=== PATIENT | female | born 1960 | race African-American/Black ===

== ENCOUNTER 2020-11-29 22:39 | Emergency (ER) | payer OTHER ==
[~2020-11-29] VITALS: Ht 162.6 cm; Wt 106.6 kg
[2020-11-29 23:40] LABS: Basophils # (auto) 0 10 ^3/uL (0-0.2); Basophils % (auto) 0.4 % (0.0-2.0); Eosinophils # (auto) 0.1 10 ^3/uL (0-0.8); Eosinophils % (auto) 2.4 % (0.0-7.0); Hematocrit 38.5 % (36.0-46.0); Hemoglobin 12.7 g/dL (12.2-16.2); Lymphocytes # (auto) 1.8 10 ^3/uL (0.4-5.4); Lymphocytes % (auto) 45.9 % (10.0-50.0); Mean Corpuscular Hemoglobin 27.1 pg (28.0-32.0); Mean Corpuscular Volume 82.3 fL (80.0-100.0); Monocytes # (auto) 0.4 10 ^3/uL (0-1.3); Monocytes % (auto) 10.4 % (0.0-12.0); Neutrophils # (auto) 1.6 10 ^3/uL (1.6-8.6); Neutrophils % (auto) 40.9 % (37.0-80.0); Nucleated Red Blood Cells % 0.4 %; Platelet Count (auto) 214 10^3/uL (140-450); Red Blood Cells 4.68 10^6/uL (4.0-5.20); Red Cell Distribution Width 14.8 % (11.8-14.3)
[2020-11-29 23:53] LABS: INR 1.04 (0.9-1.15); Partial Thromboplastin Time 27.5 sec (23.0-31.2)
[2020-11-29 23:57] LABS: Albumin 3.6 g/dL (3.4-5.0); Anion Gap 8 (5-15); Blood Urea Nitrogen 9 mg/dL (7-18); Calcium 8.4 mg/dL (8.5-10.1); Carbon Dioxide 28 mmol/L (21-32); Chloride 105 mmol/L (98-107); GFR African American 92 mL/min; GFR Non-African American 76 mL/min; Glucose 98 mg/dL (74-106); Potassium 3.1 mmol/L (3.5-5.1); Sodium 141 mmol/L (136-145)
[2020-11-30 00:02] LABS: Alanine Aminotransferase 19 U/L (13-56); Alkaline Phosphatase 80 U/L (45-117); Aspartate Aminotransferase 16 U/L (15-37); Bilirubin, Total 0.2 mg/dL (0.2-1.0)
[2020-11-30] MEDS ORDERED: POTASSIUM EFFERVESENT TAB 25 MEQ PO ONE (00:30)
[2020-11-30] MEDS ORDERED: POTASSIUM CHL 20MEQ/100ML 100 ML IV ONE (00:30)
[2020-11-30] MEDS ORDERED: IOHEXOL 350 MG/ML 100ML IJ ONE (00:35)
[2020-11-30 03:21] VITALS: BP 123/67
== END 2020-11-30 05:06 | disposition home or self-care (01) ==
LOC: ER 22:41
DX: R07.89 Other chest pain (principal); E87.6 Hypokalemia; K21.9 Gastro-esophageal reflux disease without esophagitis; I10 Essential (primary) hypertension; E11.9 Type 2 diabetes mellitus without complications
CPT/HCPCS: 36415; 71045; 71275; 80053; 83880; 84484; 85025; 85379; 85610; 85730; 93005; 93970; 96365; 96366; 99285; J3480; Q9967

== ENCOUNTER 2021-05-25 17:27 | Emergency (ER) | payer OTHER ==
[~2021-05-25] VITALS: Ht 157.5 cm; Wt 99.8 kg
[2021-05-25 18:22] LABS: Basophils # (auto) 0 10 ^3/uL (0-0.2); Basophils % (auto) 0.8 % (0.0-2.0); Eosinophils # (auto) 0 10 ^3/uL (0-0.8); Eosinophils % (auto) 0.9 % (0.0-7.0); Hematocrit 38.3 % (36.0-46.0); Hemoglobin 12.4 g/dL (12.2-16.2); Lymphocytes # (auto) 1.2 10 ^3/uL (0.4-5.4); Lymphocytes % (auto) 26.2 % (10.0-50.0); Mean Corpuscular Hemoglobin 26.9 pg (28.0-32.0); Mean Corpuscular Hgb Conc. 32.4 g/dL (32.0-36.0); Mean Corpuscular Volume 83.2 fL (80.0-100.0); Monocytes # (auto) 0.3 10 ^3/uL (0-1.3); Monocytes % (auto) 7.1 % (0.0-12.0); Red Blood Cells 4.61 10^6/uL (4.0-5.20); Red Cell Distribution Width 15.2 % (11.8-14.3); White Blood Cell 4.6 10^3/uL (4.4-10.8)
[2021-05-25 18:47] LABS: Alanine Aminotransferase 25 U/L (13-56); Albumin 3.5 g/dL (3.4-5.0); Anion Gap 7 (5-15); Aspartate Aminotransferase 21 U/L (15-37); BUN/Creatinine Ratio 10.5; Blood Urea Nitrogen 8 mg/dL (7-18); Calcium 8.4 mg/dL (8.5-10.1); Carbon Dioxide 27 mmol/L (21-32); Chloride 109 mmol/L (98-107); GFR African American 100 mL/min; GFR Non-African American 83 mL/min; Glucose 96 mg/dL (74-106); Potassium 3.4 mmol/L (3.5-5.1); Sodium 143 mmol/L (136-145)
[2021-05-25 18:52] LABS: Alkaline Phosphatase 81 U/L (45-117); Bilirubin, Total 0.3 mg/dL (0.2-1.0); Total Protein 7.9 g/dL (6.4-8.2)
[2021-05-25 21:50] VITALS: BP 145/86
== END 2021-05-25 21:55 | disposition home or self-care (01) ==
LOC: ER 17:27
DX: R07.89 Other chest pain (principal); I10 Essential (primary) hypertension; Z90.89 Acquired absence of other organs; Z88.2 Allergy status to sulfonamides
CPT/HCPCS: 36415; 71045; 80053; 83880; 84484; 85025; 93005

== ENCOUNTER 2021-06-11 17:50 | Emergency (ER) | payer OTHER ==
[~2021-06-11] VITALS: Ht 162.6 cm; Wt 108.9 kg
[2021-06-11 23:37] LABS: Mean Corpuscular Volume 83.3 fL (80.0-100.0); White Blood Cell 4.5 10^3/uL (4.4-10.8)
[2021-06-11 23:50] LABS: Basophils # (auto) 0 10 ^3/uL (0-0.2); Basophils % (auto) 0.8 % (0.0-2.0); Eosinophils # (auto) 0 10 ^3/uL (0-0.8); Hematocrit 39.6 % (36.0-46.0); Lymphocytes # (auto) 1.7 10 ^3/uL (0.4-5.4); Lymphocytes % (auto) 37.4 % (10.0-50.0); Mean Corpuscular Hemoglobin 27.3 pg (28.0-32.0); Mean Corpuscular Hgb Conc. 32.8 g/dL (32.0-36.0); Monocytes # (auto) 0.4 10 ^3/uL (0-1.3); Monocytes % (auto) 8.5 % (0.0-12.0); Neutrophils # (auto) 2.4 10 ^3/uL (1.6-8.6); Neutrophils % (auto) 52.3 % (37.0-80.0); Nucleated Red Blood Cells % 0.2 %; Red Blood Cells 4.75 10^6/uL (4.0-5.20)
[2021-06-11 23:53] LABS: Albumin 3.7 g/dL (3.4-5.0); Calcium 8.7 mg/dL (8.5-10.1); Potassium 3.5 mmol/L (3.5-5.1)
[2021-06-12 00:12] LABS: BUN/Creatinine Ratio 8.5; Bilirubin, Total 0.5 mg/dL (0.2-1.0); Total Protein 8.5 g/dL (6.4-8.2)
[2021-06-12] MEDS ORDERED: SODIUM CHLORIDE 0.9% 1,000 ML IV ONE (04:45)
[2021-06-12 04:53] LABS: Urine Bacteria FEW /hpf (None Seen); Urine Blood Negative /uL (Negative); Urine Hyaline Cast FEW /lpf (0 - 2); Urine Mucus FEW (None Seen); Urine Specific Gravity 1.013 (1.001-1.035); Urine WBC 1 /hpf (0 - 5)
[2021-06-12] MEDS ORDERED: IOHEXOL 350 MG/ML 100ML IJ ONE (08:00)
[2021-06-12] MEDS ORDERED: ONDANSETRON HCL 4 MG/2 ML VIAL IV ONE (08:45)
[2021-06-12] MEDS ORDERED: MORPHINE SULFATE INJECTION 2 MG/ML SYRG IV ONE (08:45)
[2021-06-12] MEDS ORDERED: LEVOTHYROXINE SODIUM 50 MCG TAB PO ONE (08:45)
[2021-06-12 11:50] VITALS: BP 117/62
== END 2021-06-12 12:21 | disposition home or self-care (01) ==
LOC: ER 17:52
DX: R06.02 Shortness of breath (principal); R07.89 Other chest pain; I10 Essential (primary) hypertension; F17.210 Nicotine dependence, cigarettes, uncomplicated; Z90.89 Acquired absence of other organs; Z20.822 Contact with and (suspected) exposure to COVID-19
CPT/HCPCS: 36415; 71275; 80053; 81001; 83880; 84443; 84484; 85025; 85379; 87426; 96361; 96374; 96375; 99285; J2270; J2405; J7030; Q9967; 71045

== ENCOUNTER 2022-10-25 16:40 | Emergency (ER) | payer OTHER ==
[~2022-10-25] VITALS: Ht 162.6 cm; Wt 107.6 kg
[2022-10-25] MEDS ORDERED: ASPirin 81 mg TAB PO ONE (18:30)
[2022-10-25 19:00] LABS: Basophils # (auto) 0 10 ^3/uL (0-0.2); Basophils % (auto) 0.8 % (0.0-2.0); Eosinophils # (auto) 0 10 ^3/uL (0-0.8); Eosinophils % (auto) 0.8 % (0.0-7.0); Hematocrit 38.4 % (36.0-46.0); Hemoglobin 12.4 g/dL (12.2-16.2); Lymphocytes # (auto) 1.3 10 ^3/uL (0.4-5.4); Lymphocytes % (auto) 22.7 % (10.0-50.0); Mean Corpuscular Hemoglobin 26.8 pg (28.0-32.0); Mean Corpuscular Hgb Conc. 32.3 g/dL (32.0-36.0); Mean Corpuscular Volume 82.9 fL (80.0-100.0); Monocytes # (auto) 0.3 10 ^3/uL (0-1.3); Monocytes % (auto) 5.6 % (0.0-12.0); Neutrophils # (auto) 3.9 10 ^3/uL (1.6-8.6); Neutrophils % (auto) 70.1 % (37.0-80.0); Nucleated Red Blood Cells % 0.2 %; Red Blood Cells 4.63 10^6/uL (4.0-5.20); Red Cell Distribution Width 14.8 % (11.8-14.3); White Blood Cell 5.6 10^3/uL (4.4-10.8)
[2022-10-25 19:21] LABS: Albumin 3.6 g/dL (3.4-5.0); Calcium 8.9 mg/dL (8.5-10.1); Potassium 4.3 mmol/L (3.5-5.1)
[2022-10-25 19:26] LABS: BUN/Creatinine Ratio 10.4 (10.0-20.0); Bilirubin, Total 0.3 mg/dL (0.2-1.0); Total Protein 7.8 g/dL (6.4-8.2)
[2022-10-25 19:29] LABS: Partial Thromboplastin Time 28.3 sec (24.6-33.4)
[2022-10-25] MEDS ORDERED: METOCLOPRAMIDE HCL 10 MG TAB PO ONE (20:30)
[2022-10-25 21:33] VITALS: BP 157/85
== END 2022-10-25 21:37 | disposition home or self-care (01) ==
LOC: ER 16:40
DX: R07.89 Other chest pain (principal); I10 Essential (primary) hypertension; F17.210 Nicotine dependence, cigarettes, uncomplicated; Z90.89 Acquired absence of other organs; Z88.2 Allergy status to sulfonamides
CPT/HCPCS: 36415; 71045; 80053; 84484; 85025; 85610; 85730; 93005; 99285; J8597

== ENCOUNTER 2024-12-08 18:53 | Emergency (ER) | payer OTHER ==
[~2024-12-08] VITALS: Ht 175.3 cm; Wt 136.0 kg
--- NOTE | 2024-12-08 19:04 | ECG ---
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
[2024-12-08 19:31] LABS: Basophils # (auto) 0 10 ^3/uL (0-0.2); Eosinophils # (auto) 0.1 10 ^3/uL (0-0.8); Lymphocytes # (auto) 1.2 10 ^3/uL (0.4-5.4); Mean Corpuscular Hgb Conc. 32.6 g/dL (32.0-36.0); Monocytes # (auto) 0.4 10 ^3/uL (0-1.3); White Blood Cell 3.7 10^3/uL (4.4-10.8)
[2024-12-08 19:33] LABS: Basophils % (auto) 0.9 % (0.0-2.0); Eosinophils % (auto) 2.1 % (0.0-7.0); Hematocrit 39.2 % (36.0-46.0); Hemoglobin 12.8 g/dL (12.2-16.2); Lymphocytes % (auto) 32.6 % (10.0-50.0); Mean Corpuscular Hemoglobin 26.6 pg (28.0-32.0); Mean Corpuscular Volume 81.7 fL (80.0-100.0); Neutrophils % (auto) 54.4 % (37.0-80.0); Nucleated Red Blood Cells % 0.2 %; Platelet Count (auto) 223 10^3/uL (140-450); Red Cell Distribution Width 14.6 % (11.8-14.3)
[2024-12-08 19:48] LABS: Alanine Aminotransferase 21 U/L (7-40); Albumin 4.5 g/dL (3.2-4.8); Alkaline Phosphatase 101 U/L (46-116); Anion Gap 8 (5-15); Aspartate Aminotransferase 20 U/L (13-40); BUN/Creatinine Ratio 9.9 (10.0-20.0); Blood Urea Nitrogen 10 mg/dL (9-23); Calcium 9.6 mg/dL (8.7-10.4); Carbon Dioxide 28 mmol/L (20-31); Glucose 104 mg/dL (74-106); Sodium 143 mmol/L (136-145); Total Protein 7.7 g/dL (5.7-8.2)
[2024-12-08 19:49] LABS: Bilirubin, Total 0.4 mg/dL (0.2-1.0)
[2024-12-08 19:53] LABS: Chloride 107 mmol/L (98-107); Potassium 3.2 mmol/L (3.5-5.1)
--- NOTE | 2024-12-08 20:07 | ED.PDOC ---
History of Present Illness HPI Comments 64 y/o morbidly obese F, with a history of thyroid cancer s/p thyroidectomy, HTN, PE, and tobacco use, is BIBA for c/o shortness of breath, nonproductive cough, left-sided chest pain, that radiates to left-flank area, irregular heart beat, nausea, increase urine frequency, and headache, today. Patient reports on unprovoked onset of symptoms, while resting in bed, at around 0800, this morning, that has been progressively worsening since. She describes her irregular heart beat as her heart "skipping a beat" sensation. States on needing urinate "every 30 minutes." Patient endorses on having history of similar symptoms multiple times in the past, with accompanying hospital visits. She den ies any vomiting, dysuria, congestion, fever, chills, or further associated symptoms or modifiers at this time. Denies any blood thinner medications use, currently. Reports being noncompliant with prescription Lasix for idiopathic, chronic and intermittent leg edema. Per EMS report, patient was found on scene breathing fast, with a systolic blood pressure in the 170's range. SpO2 of 100%RA. En route, patient's blood pressure improved to a systolic blood pressure in the 140's range after calming down. Nausea symptoms resolved after being given 4mg Zofran ODT by EMS. Chief Complaint: Shortness of Breath Time Seen by MD: 19:00 Primary Care Provider: KISHORE Reviewed Notes: Nurses Notes, Fisherman Helper Notes, Medications, Allergies Allergies: Coded Allergies: Elemental Sulfur (Verified Allergy, Unknown, 11/29/20) Information Source: Patient, Emergency Med Personnel Mode of Arrival: EMS Severity: Moderate Timing: Hours Duration: Since onset Prehospital treatment: 12 Lead EKG, Accucheck, Commercial Lines Insurance Agent, Treatment (4mg Zofran ODT) Review of Systems: REVIEW OF SYSTEMS: No fever, no chills, or fatigue HEENT: No sore throat, no earache, no congestion, no neck pain. Cardiac: Left-chest pain. Irregular heart beat. No palpitations. Lungs: Shortness of breath, Nonproductive cough. GI: Nausea, no vomiting, no diarrhea, no constipation, no abdominal pain : Increase urine frequency. No dysuria, or urgency. No hematuria. Musculoskeletal: No joint pain , no joint swelling, no extremity edema. Skin: No rash, no itching. Neuro: Headache, no dizziness, no weakness Vital Signs Vital Signs Date Time Temp Pulse Resp B/P (MAP) Pulse Ox O2 Delivery O2 Flow Rate FiO2 12/08/24 20:07 73 12/08/24 19:00 97.6 20 143/88 (106) 100 97.6 Physical Exam General: Awake, alert and oriented. No acute distress. Skin: Skin in warm, dry and intact. Appropriate color for ethnicity. HEENT: The head is normocephalic and atraumatic. Conjunctivae are clear without exudates or hemorrhage. Sclera is non-icteric. EOM are intact. No signs of nystagmus. Eyelids are normal in appearance without swelling or lesions. Oral mucosa is pink and moist Neck: The neck is supple with normal range of motion. No JVD. Cardiac: Rapid heart rate, regular rhythm. No murmurs, gallops, or rubs are auscultated. Respiratory: Intermittent wheezing left-lung. No signs of respiratory distress. Otherwise, lung sounds are clear in all lobes bilaterally. No rales or rhonchi. Abdominal: Abdomen is soft, non-tender without distention. Bowel sounds are present and normoactive in all four quadrants. Extremities: Upper and lower extremities are atraumatic in appearance without deformity or edema. Neurological: The patient is awake, alert and oriented to person, place, and time with normal speech. Speech is clear. There is no facial asymmetry. Psychiatric: Appropriate mood and affect. Good judgement and insight. Past Medical History PAST MEDICAL HISTORY: Cancer (thyroid cancer s/p thyroidectomy ), HTN, PE, Thyroid (hypothyroidism ) Surgical History: Thyroidectomy TARIFF COMPILER History: No Pertinent TARIFF COMPILER History Family History Family History: Family hx of Cancer Social History Smoker: Cigarettes Alcohol: Occasionally Drugs: Denies Drug Use Lives In: Home Was a procedure done? Was a procedure done?: No EKG EKG : Pulse Rate (adult): 73 [place]: Normal Cardiac Rhythm: NSR Block: None Hypertrophy: None ST: Normal Comments No STEMI Differential Dx Considerations may include: Differential diagnoses considered include acute ischemic coronary syndrome, aortic dissection, cardiac tamponade, mediastinitis, pulmonary embolus, pneumothorax, tension pneumothorax, esophageal rupture, coronary artery vasospasm, myocarditis, pericarditis, pneumonia, pulmonary edema, esophageal tear, pancreatitis, aortic stenosis, dilated cardiomyopathy, hypertrophic cardiomyopathy, mitral valve prolapse, malignancy, pleuritis, pneumomediastinum, primary pulmonary hypertension, cholecystitis, esophageal spasm, esophagus, gastritis, GERD, peptic ulcer disease, costochondritis, fibromyalgia, rib fracture, herpes zoster, radicular syndromes, thoracic outlet syndrome, somatization. X-Ray, Labs, Meds, VS Vital Signs Date Time Temp Pulse Resp B/P (MAP) Pulse Ox O2 Delivery O2 Flow Rate FiO2 12/08/24 20:07 73 12/08/24 19:00 73 12/08/24 19:00 97.6 85 20 143/88 (106) 100 97.6 Lab Test 12/08/24 20:42 12/08/24 19:20 Range/Units Troponin I High Sensitivity 5 4 </=34 ng/L White Blood Count 3.7 L 4.4-10.8 10^3/uL Red Blood Count 4.80 4.0-5.20 10^6/uL Hemoglobin 12.8 12.2-16.2 g/dL Hematocrit 39.2 36.0-46.0 % Mean Corpuscular Volume 81.7 80.0-100.0 fL Mean Corpuscular Hemoglobin 26.6 L 28.0-32.0 pg Mean Corpuscular Hemoglobin Concent 32.6 32.0-36.0 g/dL Red Cell Distribution Width 14.6 H 11.8-14.3 % Platelet Count 223 140-450 10^3/uL Mean Platelet Volume 8.6 6.9-10.8 fL Neutrophils (%) (Auto) 54.4 37.0-80.0 % Lymphocytes (%) (Auto) 32.6 10.0-50.0 % Monocytes (%) (Auto) 10.0 0.0-12.0 % Eosinophils (%) (Auto) 2.1 0.0-7.0 % Basophils (%) (Auto) 0.9 0.0-2.0 % Neutrophils # (Auto) 2.0 1.6-8.6 10 ^3/uL Lymphocytes # (Auto) 1.2 0.4-5.4 10 ^3/uL Monocytes # (Auto) 0.4 0-1.3 10 ^3/uL Eosinophils # (Auto) 0.1 0-0.8 10 ^3/uL Basophils # (Auto) 0 0-0.2 10 ^3/uL Nucleated Red Blood Cells 0.2 % Sodium Level 143 136-145 mmol/L Potassium Level 3.2 L 3.5-5.1 mmol/L Chloride Level 107 98-107 mmol/L Carbon Dioxide Level 28 20-31 mmol/L Anion Gap 8 5-15 Blood Urea Nitrogen 10 9-23 mg/dL Creatinine 1.01 0.550-1.02 mg/dL Glomerular Filtration Rate Calc 62 >90 mL/min BUN/Creatinine Ratio 9.9 L 10.0-20.0 Serum Glucose 104 74-106 mg/dL Calcium Level 9.6 8.7-10.4 mg/dL Total Bilirubin 0.4 0.2-1.0 mg/dL Aspartate Amino Transferase (AST) 20 13-40 U/L Alanine Aminotransferase (ALT) 21 7-40 U/L Alkaline Phosphatase 101 46-116 U/L B-Type Natriuretic Peptide 66.49 0-100 pg/mL Total Protein 7.7 5.7-8.2 g/dL Albumin 4.5 3.2-4.8 g/dL Current Medications Medications (Trade) Dose Ordered Sig/Heather Route Start Time Stop Time Status Last Admin Aspirin 324 mg ONCE ONCE PO 12/08/24 19:15 12/08/24 19:16 DC 12/08/24 21:12 Potassium Bicarbonate (Klor-Con/Ef) 40 meq ONCE ONCE PO 12/08/24 21:30 12/08/24 21:31 DC 12/08/24 21:23 PATIENT: KERLINE HUGGINS ACCT: [id number] UNIT: [id number] : 1960 LOC: ER ROOM / BED: / AGE / SEX: 64 / F ADM STATUS: REG ER SERVICE 678 ORDERING PHYSICIAN: ARIELLE BELCHER MD PROCEDURE(s): CTACH - CT ANGIO CHEST CONTRAST REASON: Chest pain, shortness of breath, history of PE. Rule out PE ORDER NUMBER(s): [id number], ACCESSION NUMBER(s): [id number] Procedure: CT CT ANGIO CHEST CONTRAST Reason for study/Clinical History: Chest pain, shortness of breath, history of PE. Rule out PE Comparison Study: None available at time of dictation. Exam Date: 12/08/2024 09:40 PM Radiation Dose Information: CT Dose: CTDI volume is 25.95 mGy. Dose-length product is 796.9 mGy*cm Contrast: Type of contrast: Omnipaque 350 Contrast inject: 100 mL Contrast wasted:0 TECHNIQUE: After the uneventful administration of intravenous contrast intravenously, CT imaging was performed through the chest. Coronal and sagittal reformations were performed by the technologist. FINDINGS: Lower Neck: Visualized portions of the thyroid gland are unremarkable. Aorta and Vasculature: Normal caliber of thoracic aorta. There are no filling defects in the pulmonary arteries to suggest pulmonary emboli. There is no enlargement of the pulmonary artery to suggest pulmonary artery hypertension. Lymph Nodes: No enlarged intrathoracic lymph nodes. Mediastinum: Heart size is normal. There is no pericardial effusion. The esophagus is unremarkable. Lungs: No focal consolidation, pleural effusion or significant pneumothorax. No suspicious pulmonary nodule or mass. Musculoskeletal: No acute osseous abnormality. Upper abdomen: Limited portions of the upper abdomen are unremarkable. IMPRESSION: 1. No findings of pulmonary emboli. 2. No CT findings of pulmonary artery hypertension. 3. All CT scans at this medical facility are performed using dose modulation techniques as appropriate to a performed exam including the following: Automated exposure control was utilized; adjustment of the MA and/or KV according to patient size; and use of iterative reconstruction technique. ATED BY: SUAD DILLARD Jr., DO DICTATED DATE/TIME: 12/08/242216 SIGNED BY: SUAD DILLARD Jr., SIGNED DATE/TIME: 12/08/242216 CC: Time of 1ST Reevaluation: 19:30 Reevaluation 1ST: Unchanged Patient Education/Counseling: Need For Follow Up Family Education/Counseling: No Family Present Departure 1 Departure Time of Disposition: 22:40 Impression: Primary Impression: Chest pain, non-cardiac Additional Impressions: Dyspnea Qualified Codes: R06.02 - Shortness of breath Hypokalemia Palpitations Disposition: HOME / SELF CARE / HOMELESS Condition: Stable Additional Instructions: ED DISCHARGE INSTRUCTIONS Instructions: Please read all instructions provided in this packet carefully. Although you have been discharged from the Emergency Department, this does not mean that you have a "clean bill of health". No definitive diagnosis for your symptoms has been made today. It is possible that you are in the process of developing a serious illness. This is why you must return to the ED without fail if any new or worsening symptoms (especially if your symptoms include chest pain, trouble breathing, abdominal pain, fever, headache, confusion, trouble seeing, or trouble walking) It is also very important that you see a primary care doctor within the next 3-5 days to follow up. If you are unable to get an appointment, return to the ED for re-evaluation. CHEST PAIN EDUCATION There are many things that can cause chest pain. Some are not serious and will get better on their own in a few days. But some kinds of chest pain need more testing and treatment. Your doctor may have recommended a follow-up visit in the next few days. If you are not getting better, you may need more tests or treatment. Even though your doctor has released you, you still need to watch for any problems. The doctor carefully checked you, but sometimes problems can develop later. If you have new symptoms or if your symptoms do not get better, get medical care right away. If you have worse or different chest pain or pressure that lasts more than 5 minutes or you passed out (lost consciousness), call 911 or seek other emergency help right away. A medical visit is only one step in your treatment. Even if you feel better, you still need to do what your doctor recommends, such as going to all suggested follow-up appointments and taking medicines exactly as directed. This will help you recover and help prevent future problems. How can you care for yourself at home? Rest until you feel better. Take your medicine exactly as prescribed. Call your doctor if you think you are having a problem with your medicine. Do not drive after taking a prescription pain medicine. When should you call for help? Call 911 if: You passed out (lost consciousness). You have severe difficulty breathing. You have symptoms of a heart attack. These may include: Chest pain or pressure, or a strange feeling in your chest. Sweating. Shortness of breath. Nausea or vomiting. Pain, pressure, or a strange feeling in your back, neck, jaw, or upper belly or in one or both shoulders or arms. Lightheadedness or sudden weakness. A fast or irregular heartbeat. After you call 911, the zipper sewing machine operator may tell you to chew 1 adult-strength or 2 to 4 low-dose aspirin. Wait for an ambulance. Do not try to drive yourself. Call your doctor now or seek immediate medical care if: You have any trouble breathing. You have new or different chest pain. You are dizzy or lightheaded, or you feel like you may faint. Watch closely for changes in your health, and be sure to contact your doctor if you do not get better as expected. Current as of: March 06, 2024 Author: [employer] Staff? Comments 64-year-old female with chest pain and shortness of breath. EKG negative for signs of ischemia. High sensitivity troponin negative. CT angiogram shows no PE and no acute process. Patient's vital signs are stable during the ED observation. Presentation not suggestive of acute coronary syndrome, pulmonary embolism or aortic dissection. Patient improved at time of discharge. No hypoxia, respiratory distress or dyspnea at discharge. Patient able to ambulate without difficulty. Patient felt stable for discharge to follow up with primary care provider promptly. Case was discussed with Dr. Christie with [facility] who will arrange for prompt follow up with patient's PCP. Extensive evaluation was performed in attempt to identify or rule out: (See differential diagnosis section) The following tests were ordered, and results were reviewed by me and discussed with patient: (See diagnostic results section) The following test were independently interpreted by me: EKG I reviewed the following notes from the pt's past medical encounters: October 25, 2022, June 11, 2021, May 25, 2021, and November 29, 2020 encounters for shortness of breath, atypical chest pain, shortness of breath, atypical chest pain, and shortness of breath/chest pain, respectively. Additional information was gathered from interviewing the following independent historians: EMS Discussion of management or test interpretation with external physician/other qualified health daytime caregiver: Dr. Baumann with [facility]. (Authorization # [id number]) Addressed an acute or chronic illness that poses a threat to life or bodily function: Chest pain Drug therapy requiring intensive monitoring for toxicity: IV contrast Parenteral controlled substances: N/A Decision regarding elective major surgery with identified patient or procedure risk factors: N/A Decision regarding emergency major surgery: N/A Decision not to resuscitate or to de-escalate care because of poor prognosis: N/A Diagnosis or treatment significantly limited by social determinants of health: N/A Critical Care Note Critical Care Time?: No Stability Stability form required: No Heart Score Heart Score: Heart Score Response (Comments) Value History Slightly Suspicious 0 EKG Normal 0 Age 45-64 1 Risk Factors >3 or Hx ASHD 2 Troponin Normal limit 0 Total 3 I personally scribed for ARIELLE BELCHER MD ([email or web address]) on 12/08/24 at 20:07. Electronically submitted by Ben Prakash ([email or web address]). I personally scribed for ARIELLE BELCHER MD ([email or web address]) on 12/08/24 at 22:01. Electronically submitted by Ben Prakash ([email or web address]). ARIELLE BELCHER MD December 08, 2024 20:07
[2024-12-08] MEDS: ASPirin 81 mg TAB PO ONE (21:12)
[2024-12-08] MEDS: POTASSIUM CHL 20 Meq TABLET PO ONE (21:12)
[2024-12-08] MEDS: POTASSIUM EFFERVESENT TAB 25 MEQ PO ONE (21:23)
--- NOTE | 2024-12-08 22:19 | DVH ---
Procedure: CT CT ANGIO CHEST CONTRAST Reason for study/Clinical History: Chest pain, shortness of breath, history of PE. Rule out PE Comparison Study: None available at time of dictation. Exam Date: 12/08/2024 09:40 PM Radiation Dose Information: CT Dose: CTDI volume is 25.95 mGy. Dose-length product is 796.9 mGy*cm Contrast: Type of contrast: Omnipaque 350 Contrast inject: 100 mL Contrast wasted:0 TECHNIQUE: After the uneventful administration of intravenous contrast intravenously, CT imaging was performed through the chest. Coronal and sagittal reformations were performed by the technologist. FINDINGS: Lower Neck: Visualized portions of the thyroid gland are unremarkable. Aorta and Vasculature: Normal caliber of thoracic aorta. There are no filling defects in the pulmonar y arteries to suggest pulmonary emboli. There is no enlargement of the pulmonary artery to suggest pu lmonary artery hypertension. Lymph Nodes: No enlarged intrathoracic lymph nodes. Mediastinum: Heart size is normal. There is no pericardial effusion. The esophagus is unremarkable. Lungs: No focal consolidation, pleural effusion or significant pneumothorax. No suspicious pulmonary nodule or mass. Musculoskeletal: No acute osseous abnormality. Upper abdomen: Limited portions of the upper abdomen are unremarkable. IMPRESSION: 1. No findings of pulmonary emboli. 2. No CT findings of pulmonary artery hypertension. 3. All CT scans at this medical facility are performed using dose modulation techniques as appropriate to a performed exam including the following: Automated exposure control was utilized; adjustment of t he MA and/or KV according to patient size; and use of iterative reconstruction technique.
[2024-12-08] MEDS: IOHEXOL 350 MG/ML 100ML IJ ONE (22:48)
[2024-12-09 00:09] VITALS: BP 141/61; PULSE 58; TEMP 98.3
[2024-12-09 00:14] VITALS: RESP 20; O2SAT 98
== END 2024-12-09 00:24 | disposition home or self-care (01) ==
LOC: ER 18:53 → EDBD 18:53 → ER 12-09 00:24
DX: R07.89 Other chest pain (principal); R06.00 Dyspnea, unspecified; E87.6 Hypokalemia; R00.2 Palpitations; I10 Essential (primary) hypertension; F17.210 Nicotine dependence, cigarettes, uncomplicated; E89.0 Postprocedural hypothyroidism; Z90.89 Acquired absence of other organs; Z85.850 Personal history of malignant neoplasm of thyroid; Z88.8 Allergy status to other drugs, medicaments and biological substances
CPT/HCPCS: 36415; 71275; 80053; 83880; 84484; 85025; 93005; 99285; Q9967

== ENCOUNTER 2025-08-05 17:49 | Emergency (ER) | payer OTHER ==
[~2025-08-05] VITALS: Ht 175.3 cm; Wt 100.0 kg
--- NOTE | 2025-08-05 18:15 | ED.PDOC ---
GI ASSESSMENT HPI Comments 64 year old female with PMHx of HTN and thyroid issues brought in by EMS presents to the emergency department for chief complaint of abdominal pain onset at 14:30 today. Pt was at home when she began feeling a jolt of pain in her LUQ abdomen at 14:30, with pain excaerbating until 16:30 prompting her to make the call to EMS. EMS arrived on site and administered tylenol 1g and zophran 4mg. At the ED, pt complains of persistent pain radiating across the lower upper quadrant of the abdomen, nausea, and urinary frequency of about 10x per hour. Pt denies associated symptoms of vomiting, diarrhea, dizziness, and chest pain. Pt denies any other symptoms at this time. Time Seen by MD: 18:12 Primary Care Provider: KISHORE Reviewed Notes: Nurses Notes, Transformation Lead Notes, Medications, Allergies Allergies: Coded Allergies: Elemental Sulfur (Verified Allergy, Unknown, 11/29/20) Home Meds Active Scripts Gabapentin (Once-Daily) (Gabapentin) 300 Mg Tab, 300 MG PO Q6HP PRN, #60 TAB Prov:YULIA LOPEZ MD 08/05/25 Cefdinir (Cefdinir) 300 Mg Cap, 1 CAP PO BID for 10 Days, #20 CAP Prov:YULIA LOPEZ MD 08/05/25 Information Source: Patient Mode of Arrival: EMS Timing: Hours Duration: Since onset Prehospital treatment: Pain Meds, Treatment Quality: Sharp Vomitus: None Severity: Moderate Recent: None Recent Hx of: None Pain Location: LUQ Modifying Factors: Nothing Associated sign and symptoms: Nausea, None Past Medical History PAST MEDICAL HISTORY: Cancer, HTN, PE, Thyroid Surgical History: Thyroidectomy CALL CENTER ASSOCIATE History: No Pertinent CALL CENTER 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 History Family History Family History: Family hx of Cancer Social History Smoker: Cigarettes Alcohol: Occasionally Drugs: Denies Drug Use Lives In: Home Constitutional: denies: chills, diaphoresis, fatigue, fever, malaise, sweats, weakness, others EENTM: denies: blurred vision, double vision, ear bleeding, ear discharge, ear drainage, ear pain, ear ringing, eye pain, eye redness, hearing loss, mouth pain, mouth swelling, nasal discharge, nose bleeding, nose congestion, nose pain, photophobia, tearing, throat pain, throat swelling, voice changes, others Respiratory: denies: cough, hemoptysis, orthopnea, SOB at rest, shortness of breath, SOB with excertion, stridor, wheezing, others Cardiovascular: denies: chest pain, dizzy spells, diaphoresis, Dyspnea on exertion, edema, irregular heart beat, left arm pain, lightheadedness, palpitations, PND, syncope, others Gastrointestinal: reports: abdominal pain, nausea; denies: abdomen distended, blood streaked bowels, constipated, diarrhea, dysphagia, difficulty swallowing, hematemesis, melena, poor appetite, poor fluid intake, rectal bleeding, rectal pain, vomiting, others Genitourinary: denies: abnormal vagina bleeding, burning, dyspareunia, dysuria, flank pain, frequency, hematuria, incontinence, pain, , vagina discharge, urgency, others Neurological: denies: dizziness, fainting, headache, left sided numbness, left sided weakness, numbness, paresthesia, pre-existing deficit, right sided numbness, right sided weakness, seizure, speech problems, tingling, tremors, weakness, others Musculoskeletal: denies: back pain, gout, joint pain, joint swelling, muscle pain, muscle stiffness, neck pain, others Integumetry: denies: bruises, change in color, change in hair/nails, dryness, laceration, lesions, lumps, rash, wounds, others Allergic/Immunocompromised: denies: Difficulty Healing, Frequent Infections, Hives, Itching, others Hematologic/Lymphatic: denies: anemia, blood clots, easy bleeding, easy b ruising, swollen glands, others Endocrine: denies: excessive hunger, excessive sweating, excessive thirst, excessive urination, flushing, intolerance to cold, intolerance to heat, unexplained weight gain, unexplained weight loss, others Psychiatric: denies: anxiety, bipolar disorder, depression, hopeless, panic disorder, schizophrenia, sleepless, suicidal, others All Other Systems: Reviewed and Negative Physical Exam General Appearance: No Apparent Distress, Normal HEENT: Normal ENT Inspection, Pharynx Normal, TMs Normal Neck: Full Range of Motion, Non-Tender, Normal, Normal Inspection Respiratory: Chest Non-Tender, Lungs Clear, No Accessory Muscle Use, No Respiratory Distress, Normal Breath Sounds Cardiovascular: No Edema, No JVD, No Murmur, No Gallop, Normal Peripheral Pulses, Regular Rate/Rhythm Breast Exam: Deferred Gastrointestinal: LUQ (mild tenderness in the LUQ) Genitalia: Deferred Pelvic: Deferred Rectal: Deferred Extremities: No calf tenderness, Normal capillary refill, Normal inspection, Normal range of motion, Non-tender, No pedal edema Musculoskeletal : Apperance: Normal Neurologic: Alert, rectification printer II-XII nml as Tested, No Motor Deficits, Normal Affect, Normal Mood, No Sensory Deficits Cerebellar Function: Normal Reflexes: Normal Skin: Dry, Normal Color, Warm Lymphatic: No Adenopathy Was a procedure done? Was a procedure done?: No GI differential Dx Differential Diagnosis: Appendicitis, Gastroenteritis X-Ray, Labs, Meds, VS Vital Signs Date Time Temp Pulse Resp B/P (MAP) Pulse Ox O2 Delivery O2 Flow Rate FiO2 08/05/25 22:10 97.6 62 16 105/53 (70) 96 97.6 08/05/25 20:54 71 16 133/69 08/05/25 20:40 Room Air 08/05/25 20:40 97.6 71 17 133/69 (90) 96 97.6 08/05/25 18:22 99.7 105 20 155/84 98 99.7 08/05/25 17:57 87 Lab Test 08/05/25 18:24 Range/Units White Blood Count 5.2 4.4-10.8 10^3/uL Red Blood Count 4.58 4.0-5.20 10^6/uL Hemoglobin 12.3 12.2-16.2 g/dL Hematocrit 37.8 36.0-46.0 % Mean Corpuscular Volume 82.5 80.0-100.0 fL Mean Corpuscular Hemoglobin 26.8 L 28.0-32.0 pg Mean Corpuscular Hemoglobin Concent 32.5 32.0-36.0 g/dL Red Cell Distribution Width 14.9 H 11.8-14.3 % Platelet Count 225 140-450 10^3/uL Mean Platelet Volume 8.8 6.9-10.8 fL Neutrophils (%) (Auto) 69.0 37.0-80.0 % Lymphocytes (%) (Auto) 22.6 10.0-50.0 % Monocytes (%) (Auto) 6.9 0.0-12.0 % Eosinophils (%) (Auto) 0.7 0.0-7.0 % Basophils (%) (Auto) 0.8 0.0-2.0 % Neutrophils # (Auto) 3.6 1.6-8.6 10 ^3/uL Lymphocytes # (Auto) 1.2 0.4-5.4 10 ^3/uL Monocytes # (Auto) 0.4 0-1.3 10 ^3/uL Eosinophils # (Auto) 0 0-0.8 10 ^3/uL Basophils # (Auto) 0 0-0.2 10 ^3/uL Nucleated Red Blood Cells 0.2 % Sodium Level 141 136-145 mmol/L Potassium Level 3.7 3.5-5.1 mmol/L Chloride Level 108 H 98-107 mmol/L Carbon Dioxide Level 25 20-31 mmol/L Anion Gap 8 5-15 Blood Urea Nitrogen 9 9-23 mg/dL Creatinine 0.75 0.550-1.02 mg/dL Glomerular Filtration Rate Calc 89 >90 mL/min BUN/Creatinine Ratio 12.0 10.0-20.0 Serum Glucose 91 74-106 mg/dL Calcium Level 8.9 8.7-10.4 mg/dL Total Bilirubin 0.3 0.2-1.0 mg/dL Aspartate Amino Transferase (AST) 23 13-40 U/L Alanine Aminotransferase (ALT) 24 7-40 U/L Alkaline Phosphatase 86 46-116 U/L Total Protein 7.4 5.7-8.2 g/dL Albumin 4.1 3.2-4.8 g/dL Lipase 45 12-53 U/L Current Medications Medications (Trade) Dose Ordered Sig/Heather Route Start Time Stop Time Status Last Admin Ondansetron HCl (Zofran) 4 mg ONCE ONCE IV 08/05/25 18:15 08/05/25 18:16 DC 08/05/25 20:53 Hydromorphone HCl (Dilaudid Injection) 1 mg ONCE ONCE IV 08/05/25 18:15 08/05/25 18:16 DC 08/05/25 20:54 Sodium Chloride 1,000 ml @ 1,000 mls/hr Q1H ONCE IVB 08/05/25 18:15 08/05/25 19:14 DC 08/05/25 20:53 Ceftriaxone Sodium 50 ml @ 100 mls/hr ONCE ONCE IV 08/05/25 20:15 08/05/25 20:44 DC 08/05/25 20:53 Time of 1ST Reevaluation: 18:43 Reevaluation 1ST: Unchanged Patient Education/Counseling: Diagnosis, Treatment, Need For Follow Up Family Education/Counseling: No Family Present SEPSIS Sepsis Screen Physician Orders Urinalysis (08/05/25 18:08) Ct Ab Pel With Iv Con Only (08/05/25 18:08) Vital Signs Date Time Temp Pulse Resp B/P (MAP) Pulse Ox O2 Delivery O2 Flow Rate FiO2 08/05/25 22:10 97.6 62 16 105/53 (70) 96 97.6 08/05/25 20:54 71 16 133/69 08/05/25 20:40 Room Air 08/05/25 20:40 97.6 71 17 133/69 (90) 96 97.6 08/05/25 18:22 99.7 105 20 155/84 98 99.7 08/05/25 17:57 87 Laboratory Tests Test 08/05/25 18:24 White Blood Count 5.2 10^3/uL (4.4-10.8) Medications Medications Dose Ordered Sig/Heather Route Start Time Stop Time Status Last Admin Dose Admin Ceftriaxone Sodium 50 ml @ 100 mls/hr ONCE ONCE IV 08/05/25 20:15 08/05/25 20:44 DC 08/05/25 20:53 Hydromorphone HCl 1 mg ONCE ONCE IV 08/05/25 18:15 08/05/25 18:16 DC 08/05/25 20:54 Ondansetron HCl 4 mg ONCE ONCE IV 08/05/25 18:15 08/05/25 18:16 DC 08/05/25 20:53 Sodium Chloride 1,000 ml @ 1,000 mls/hr Q1H ONCE IVB 08/05/25 18:15 08/05/25 19:14 DC 08/05/25 20:53 Departure 1 Departure Time of Disposition: 21:00 Impression: Primary Impression: Abdominal pain Disposition: HOME / SELF CARE / HOMELESS Condition: Stable e-Prescriptions Gabapentin (Once-Daily) (Gabapentin) 300 Mg Tab 300 MG PO Q6HP PRN, #60 TAB Prov: YULIA LOPEZ MD 08/05/25 Cefdinir (Cefdinir) 300 Mg Cap 1 CAP PO BID for 10 Days, #20 CAP Prov: YULIA LOPEZ MD 08/05/25 Discharged With: Self Critical Care Note Critical Care Time?: No Stability Stability form required: No Heart Score Heart Score: Heart Score Response (Comments) Value History N/A 0 EKG N/A 0 Age N/A 0 Risk Factors N/A 0 Troponin N/A 0 Total 0 I personally scribed for YULIA LOPEZ MD ([email or web address]) on 08/05/25 at 18:15. Electronically submitted by Bethany Heck ([email or web address]). YULIA LOPEZ MD Aug 05, 2025 18:15
[2025-08-05 18:48] LABS: Hematocrit 37.8 % (36.0-46.0); Hemoglobin 12.3 g/dL (12.2-16.2); Mean Corpuscular Hemoglobin 26.8 pg (28.0-32.0); Mean Corpuscular Volume 82.5 fL (80.0-100.0); Nucleated Red Blood Cells % 0.2 %
--- NOTE | 2025-08-05 18:55 | ECG ---
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
[2025-08-05 19:08] LABS: Alanine Aminotransferase 24 U/L (7-40); Albumin 4.1 g/dL (3.2-4.8); Alkaline Phosphatase 86 U/L (46-116); Anion Gap 8 (5-15); BUN/Creatinine Ratio 12.0 (10.0-20.0); Calcium 8.9 mg/dL (8.7-10.4); Carbon Dioxide 25 mmol/L (20-31); Glucose 91 mg/dL (74-106); Lipase 45 U/L (12-53); Potassium 3.7 mmol/L (3.5-5.1); Sodium 141 mmol/L (136-145); Total Protein 7.4 g/dL (5.7-8.2)
[2025-08-05 19:09] LABS: Bilirubin, Total 0.3 mg/dL (0.2-1.0)
[2025-08-05 19:10] LABS: Blood Urea Nitrogen 9 mg/dL (9-23); Chloride 108 mmol/L (98-107)
--- NOTE | 2025-08-05 19:52 | DVH ---
EXAM: CT CT AB PEL WITH IV CON ONLY History: left sided abd pain COMPARISON: None TECHNIQUE: Multidetector spiral CT of the abdomen and pelvis was performed from lung bases to pubic symphysis. Intravenous contrast was administered during this examination. Portal venous imaging was obtained. Axial, coronal and sagittal multiplanar reformats were performed by the technologist on a separate workstation. Radiation Dose : 1. Abdomen/Pelvis: CTDIvol 27 mGy, DLP 1440 mGy*cm. CONTRAST: Type of contrast: Omnipaque Contrast injected: 100 ml FINDINGS: Lung Bases: No acute or significant lung base finding. Normal heart size. No pleural or pericardial effusion. Liver: Vague hypodensity in the right hepatic lobe measures up to 2.7 cm. Gallbladder and Biliary Tree: Unremarkable Spleen: Unremarkable Pancreas: The pancreas is normal in appearance without focal lesions or abnormal enhancement. Adrenal Glands: Unremarkable Kidneys: No hydronephrosis. Bladder: Unremarkable Bowel: The stomach is grossly normal in appearance. Small bowel and colon are normal in caliber and distribution. The appendix is not visualized; however, no secondary findings of acute appendicitis identified. 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 Vasculature: The visualized abdominal aorta is normal in size and caliber. Abdominal and pelvic vessels demonstrate normal enhancement. Pelvic Organs: Unremarkable Musculoskeletal: No aggressive focal bony lesions, acute fractures or dislocation. IMPRESSION: 1. 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 2. Vague hypodensity in the right hepatic lobe measures up to 2.7 cm. 3. This is nonspecific and may represent a hemangioma. 4. This can be further evaluated with nonemergent ultrasound. Radiation optimization: All CT scans at this facility use at least one of these dose optimization techniques: automated exposure control mA and/or kV adjustment per patient size (includes targeted exams where dose is matched to clinical indication) or iterative reconstruction.
[2025-08-05] MEDS ORDERED: GABA300T4 PO (20:06)
[2025-08-05] MEDS ORDERED: CEFD300C2 PO (20:06)
[2025-08-05] MEDS: ONDANSETRON HCL 4 MG/2 ML VIAL IV ONE (20:53)
[2025-08-05] MEDS: SODIUM CHLORIDE 0.9% 1,000 ML IVB ONE (20:53)
[2025-08-05] MEDS: HYDROmorphone HCL 2 MG/ML VL/or syr IV ONE (20:54)
[2025-08-05] MEDS: IOHEXOL 300 MG/ML 100ML BOTTLE IJ ONE (20:55)
[2025-08-05 22:10] VITALS: BP 105/53; PULSE 62; RESP 16; TEMP 97.6; O2SAT 96
== END 2025-08-05 22:20 | disposition home or self-care (01) ==
LOC: EDBD 17:49 → ER 17:49
DX: R10.12 Left upper quadrant pain (principal); R35.0 Frequency of micturition; I10 Essential (primary) hypertension; E03.9 Hypothyroidism, unspecified; F17.210 Nicotine dependence, cigarettes, uncomplicated; Z85.850 Personal history of malignant neoplasm of thyroid; Z90.89 Acquired absence of other organs
CPT/HCPCS: 36415; 74177; 80053; 83690; 85025; 93005; 96365; 96375; 99285; J0696; J1171; J2405; J7030; Q9967